=== PATIENT | female | born 1960 | race Caucasian/White ===

== ENCOUNTER 2017-01-28 10:51 | Day surgery (SDC) | payer BC ==
[2017-01-28] VITALS (16 sets, daily range): BP systolic 87–121; BP diastolic 45–79; PULSE 16–72; RESP 7–30; Ht 157.5 cm; Wt 77.5 kg
[~2017-01-28] VITALS: Ht 157.5 cm; Wt 77.5 kg
[2017-01-28] MEDS ORDERED: BUPR300T48 PO (11:09)
[2017-01-28] MEDS ORDERED: LACTATED RINGER'S 1,000 ML IV SCH (11:14)
--- NOTE | 2017-01-28 11:29 | HP ---
Date/Time of Note Date/Time of Note DATE: 01/28/17 TIME: 11:19 Assessment/Plan VTE Prophylaxis VTE Prophylaxis Intervention: ambulation Lines/Catheters IV C[facility]ter Type (from [facility]): Peripheral IV Central line still needed: No Urinary Cath still in place: No Assessment/Plan Chief Complaint/Hosp Course Postmenopausal bleeding. Problems: Assessment/Plan Hysteroscopy with possible resection of any findings, curretage. HPI/ROS Admit Date/Time Admit Date/Time Jan 28 2017 Hx of Present Illness 57 y.o. menopausal since age 50 and on an extremely low dose of hormones and is having postmenopausal bleeding. Pt had an endometrial biopsy in the past that she did not tolerate well so is opting for a hospital procedure with anesthesia. ROS Constitutional: improved, no complaints Respiratory: no complaints Cardiovascular: no complaints Gastrointestinal: no complaints Genitourinary: bleeding Neurologic: no complaints PMH/Family/Social Past Medical History Medical History: irritable bowel syndrome, other (Chronic fatigue. Depression. Anxiety.) Past Surgical History Past Surgical Hx: other ( x 2. Tonsillectomy. D and c. Eye surgery for muscle issues. Wrist surgery for a ganglion.) Family History Significant Family History: cancer (father-lymphoma), hypertension (Both parents.) Social History Alcohol Use: none Smoking Status: Never smoker Drug Use: none Exam/Review of Systems Vital Signs Vitals Vital Signs Date Time Temp Pulse Resp B/P Pulse Ox O2 Delivery O2 Flow Rate FiO2 01/28/17 11:15 98.1 63 16 121/79 98 Room Air Exam Exam 5' 3" 171# BP 122/70. Constitutional: alert, oriented, well developed Psych: anxiety, depression Head: atraumatic, normocephalic Eyes: nl conjunctiva Respiratory: clear to auscultation, normal air movement Cardiovascular: regular rate and rhythm Gastrointestinal: nl liver, spleen, non-tender, soft Genitourinary - Female: nl adnexae, nl external genitalia Extremities: normal pulses Neurological: FLE[employer] MANAGER II-XII intact PRIYA LEO MD Jan 28, 2017 11:28
[2017-01-28] MEDS ORDERED: FENTAnyl 50 MCG/ML VIAL ONE (13:24)
[2017-01-28] MEDS ORDERED: MIDAZOLAM 1 MG/ML 2 ML INJ ONE (13:24)
[2017-01-28] MEDS ORDERED: PROPOFOL 20 ML ONE (14:25)
[2017-01-28] MEDS ORDERED: LIDOCAINE 2% (SDV) 5 ML INJ ONE (14:25)
[2017-01-28] MEDS ORDERED: CEFAZOLIN 1 GM INJ ONE (14:26)
[2017-01-28] MEDS ORDERED: ONDANSETRON 4 MG INJ ONE (14:28)
[2017-01-28] MEDS ORDERED: DIPHENHYDRAMINE 50 MG INJ IV PRN (15:00)
[2017-01-28] MEDS ORDERED: LABETALOL HCL 20MG INJ IV PRN (15:00)
[2017-01-28] MEDS ORDERED: HYDROmorphONE (0.2 MG/ML) 10ML SYG IV PRN ×2 (15:00)
[2017-01-28] MEDS ORDERED: ONDANSETRON 4 MG INJ IV PRN (15:00)
[2017-01-28] MEDS ORDERED: METOCLOPRAMIDE 10 MG INJ IV PRN (15:00)
[2017-01-28] MEDS ORDERED: FENTAnyl 50 MCG/ML VIAL IV PRN (15:00)
[2017-01-28] MEDS ORDERED: MEPERIDINE 25 MG INJ IV PRN (15:00)
[2017-01-28] MEDS ORDERED: hydrALAzine 20 MG INJ IV PRN (15:00)
--- NOTE | 2017-01-28 15:22 | PD.PPDC ---
CIRCULATING NURSE Discharge Instruction Condition Patient Condition: Good Diet Diet: Resume Regular Diet Activity/Restrictions Activity: Normal Activity May Shower Restrictions: No Sexual Activity Nothing in the Vagina No [place] No Tampons, douche Follow-up Follow-up with Physician: 4 Provider Information: As needed. Doctor will call with pathology results. Return to clinic for [employer] [facility] Instructions: Fever greater than 101 Chills Worsening abdominal pain Excessive Vaginal Bleeding PRIYA LEO MD Jan 28, 2017 15:22
--- NOTE | 2017-01-28 15:25 | OPR ---
Date/Time of Note Date/Time of Note DATE: 01/28/17 TIME: 15:22 Operative Report Procedure Date: Jan 28, 2017 Preoperative Diagnosis Postmenopausal bleeding Postoperative Diagnosis Same Operation/Procedure Performed Hysteroscopy with TruClear resection of an endometrial polyp and curretage Surgeon see signature line [employer] None. Anesthesia Type: general Anesthesiologist: KIRSTIE OCHOA MD Estimated Blood Loss: none Transfusion none Specimen Endometrial curettings and polyp Grafts/Implants none Complications none Pt Condition Post Procedure: stable Disposition: PACU Procedure Description The patient was brought to the OR and placed under general anesthesia. Her legs were then brought up into stirrups and she was prepped and draped in the usual sterile fashion. A bivalve speculum was placed and then the cervix was grasped with a tenaculum, the os was dilated with Hegar dilators, and the uterus was sounded to 9 cm. The hysteroscope was placed and with the fluid running the cavity was viewed and there was only one lesion, a polyp in the upper right corner near the tubal ostia. The TruClear resection device was then introduced through the scope and the polyp was removed. I then proceeded to do a uterine curettage with the device as well. The scope was then removed, the water drained , the tenaculum and speculum were removed and the patient was awakened from general anesthesia having tolerated the procedure well. She was transported to the recovery room in excellent condition. PRIYA LEO MD Jan 28, 2017 15:25
== END 2017-01-28 16:30 | disposition home or self-care (01) ==
LOC: SDS 10:51
PROVIDERS: ATTEND Obstetrics & Gynecology
DX: N84.0 Polyp of corpus uteri (principal); N95.0 Postmenopausal bleeding; E78.5 Hyperlipidemia, unspecified
CPT/HCPCS: 58558; J0690; J2250; J2405; J3010